=== PATIENT | male | born 1950 | race Caucasian/White ===

== ENCOUNTER 2017-09-07 11:25 | Outpatient (CLI) | payer MEDICARE ==
--- NOTE | 2017-09-07 13:03 | ULT ---
TESTICULAR ULTRASOUND: History: Mass in left testicle region x 1 year. FINDINGS: Real-time imaging of the right and left testis were performed. This shows normal sized testicles. The right measures 4 cm and the left also 4 cm in size. There is a small 3 mm left epididymal cyst. The right epididymis is unremarkable. Doppler evaluation with spectral analysis: Normal flow is shown to both testis. IMPRESSION: 1. Bilateral hydroceles, larger on the left. 2. Small 3 mm epididymal cyst. POS: C
== END 2017-09-07 11:26 | disposition home or self-care (01) ==
LOC: NAV ULT 11:25
PROVIDERS: ATTEND Family Medicine
DX: N50.89 Other specified disorders of the male genital organs (principal); N43.3 Hydrocele, unspecified; N50.3 Cyst of epididymis
CPT/HCPCS: 76870; 93976